=== PATIENT | female | born 1960 | race Native Hawaiian/Other Pacific Islander ===

== ENCOUNTER 2016-12-24 22:15 | Emergency (ER) | payer BC ==
[2016-12-24] MEDS ORDERED: IPRATROPIUM 0.5 MG/2.5 ML NEBU INHALATION STA (22:42)
[2016-12-24] MEDS ORDERED: MAGNESIUM SULFATE-D5W PMX 1 GM in DEXTROSE/WATER 1 100ML.BAG IVPB STA (22:42)
[2016-12-24] MEDS ORDERED: ALBUTEROL NEBULIZED 2.5 MG/3 ML INHALATION STA (22:42)
[2016-12-24] MEDS ORDERED: methylPREDNISolone SOD SUCCI 125 MG/2 ML VIAL IV STA (22:42)
[2016-12-24 23:05] LABS: Basophils % (A) 0 %; CH 26.9; CHCM 32.4; Eosinophils # (A) 0.5 k/uL (0-0.7); Eosinophils % (A) 7 %; HCT 36.3 % (34.0-46.0); HDW 2.39; HGB 11.6 gm/dL (11.4-16.0); Luc % (Auto) 3; Lymphocytes # (A) 2.8 k/uL (1.0-4.8); Lymphocytes % (A) 41 %; MCH 26.7 pg (25.0-35.0); MCHC 31.9 g/dL (31.0-37.0); MCV 83.7 fL (80.0-100.0); Mean Platelet Volume 7.3; Monocytes # (A) 0.4 k/uL (0-1.0); Monocytes % (A) 6 %; Neutrophils % (A) 43 %; RBC 4.33 m/uL (3.80-5.40); WBC 6.8 k/uL (3.8-10.6); WBC (Perox) 6.84
--- NOTE | 2016-12-24 23:08 | XR ---
EXAMINATION TYPE: XR chest 2V DATE OF EXAM: 12/24/2016 COMPARISON: NONE HISTORY: Dyspnea TECHNIQUE: Frontal and lateral views of the chest are obtained. FINDINGS: EKG leads. There is no focal air space opacity, pleural effusion, or pneumothorax seen. Th e cardiac silhouette size is within normal limits. The osseous structures are intact. IMPRESSION: No acute cardiopulmonary process.
[2016-12-24 23:13] LABS: ALT 31 U/L (9-52); AST 24 U/L (14-36); Alkaline Phosphatase 105 U/L (38-126); Anion Gap 12 mmol/L; Blood Urea Nitrogen 15 mg/dL (7-17); Calcium 9.4 mg/dL (8.4-10.2); Carbon Dioxide 16 mmol/L (22-30); Chloride 114 mmol/L (98-107); Glucose 92 mg/dL (74-99); Magnesium 1.9 mg/dL (1.6-2.3); Non-African American GFR(MDRD) >60 (>60 ml/min/1.73 sqM); Potassium 3.9 mmol/L (3.5-5.1); Sodium 142 mmol/L (137-145); Total Bilirubin 0.3 mg/dL (0.2-1.3); Total Protein 6.6 g/dL (6.3-8.2)
[2016-12-24 23:14] LABS: Partial Thromboplastin Time 23.4 sec (22.0-30.0); Prothrombin Time 9.9 sec (9.0-12.0)
[2016-12-24 23:41] VITALS: RESP 20
--- NOTE | 2016-12-25 00:30 | ED ---
SOB HPI - General Chief Complaint: Shortness of Breath Stated Complaint: JAKOB Time Seen by Provider: 12/24/16 22:40 Source: patient, family Mode of arrival: wheelchair Limitations: no limitations - History of Present Illness Initial Comments: Patient complains of asthma. She has a history of asthma. She denies any fever , chills or chest pain. She has no belly or back pain. She has no nausea or vomiting. She has no lightheadedness or dizziness. She did take her albuterol at home, however it is not helping her as much as usual. She is unaware of sick contacts and has not traveled anywhere. Her symptoms she thinks might be related to the weather. - Related Data Home Medications Medication Instructions Recorded Confirmed Adalimumab [Humira Pen] 40 mg SQ [id number] 12/24/16 12/24/16 Albuterol Sulfate [Proair Hfa] 1 - 2 puff INHALATION RT-Q6H PRN 12/24/16 Fluticasone/Salmeterol [Advair 1 puff INHALATION RT-BID 12/24/16 12/24/16 100-50 Diskus] Methotrexate Sodium [Methotrexate] 12.5 mg PO SA 12/24/16 12/24/16 Previous Rx's Medication Instructions Recorded predniSONE 50 mg PO DAILY #5 tablet 12/25/16 Allergies Allergy/AdvReac Type Severity Reaction Status Date / Time No Known Allergies Allergy Verified 12/24/16 22:54 Review of Systems ROS Statement: Those systems with pertinent positive or pertinent negative responses have been documented in the HPI. ROS Other: All systems not noted in ROS Statement are negative. Past Medical History Past Medical History: Asthma Additional Past Medical History / Comment(s): arthritis, History of Any Multi-Drug Resistant Organisms: None Reported, MRSA Date of last positivie culture/infection: 2015 MDRO Source:: chest Additional Past Surgical History / Comment(s): ccarpal tunnel Past Psychological History: No Psychological Hx Reported Smoking Status: Never smoker Past Alcohol Use History: None Reported Past Drug Use History: None Reported General Exam Limitations: no limitations General appearance: alert, in no apparent distress Head exam: Present: atraumatic, normocephalic, normal inspection Eye exam: Present: normal appearance, PERRL, EOMI. Absent: scleral icterus, conjunctival injection, periorbital swelling ENT exam: Present: normal exam, mucous membranes moist Neck exam: Present: normal inspection. Absent: tenderness, meningismus, lymphadenopathy Respiratory exam: Present: wheezes. Absent: respiratory distress, rales, rhonchi, stridor Cardiovascular Exam: Present: regular rate, normal rhythm, normal heart sounds. Absent: systolic murmur, diastolic murmur, rubs, gallop, clicks GI/Abdominal exam: Present: soft, normal bowel sounds. Absent: distended, tenderness, guarding, rebound, rigid Extremities exam: Present: normal inspection, full ROM, normal capillary refill. Absent: tenderness, pedal edema, joint swelling, calf tenderness Back exam: Present: normal inspection Neurological exam: Present: alert, oriented X3, CN II-XII intact Psychiatric exam: Present: normal affect, normal mood Skin exam: Present: warm, dry, intact, normal color. Absent: rash Course Vital Signs 12/24/16 12/24/16 12/24/16 22:23 23:04 23:21 Temperature 97.2 F L Pulse Rate 92 82 84 Respiratory 26 H Rate Blood Pressure 134/71 O2 Sat by Pulse 95 Oximetry 12/24/16 12/24/16 12/25/16 23:40 23:42 00:22 Temperature Pulse Rate 85 89 100 Respiratory 20 Rate Blood Pressure 120/58 O2 Sat by Pulse 99 Oximetry Medical Decision Making - Medical Decision Making Patient presents with an acute exacerbation of asthma. She is given breathing treatments. Her laboratory studies are normal. Her chest x-rays clear. I reevaluated the patient. Her lungs are clear and she is feeling much better. She would like to go home. She will follow-up with her doctor. - Lab Data Result diagrams: 12/24/16 22:50 12/24/16 22:50 Lab Results 12/24/16 12/24/16 12/24/16 Range/Units 22:50 22:50 22:50 WBC 6.8 (3.8-10.6) k/uL RBC 4.33 (3.80-5.40) m/uL Hgb 11.6 (11.4-16.0) gm/dL Hct 36.3 (34.0-46.0) % MCV 83.7 (80.0-100.0) fL MCH 26.7 (25.0-35.0) pg MCHC 31.9 (31.0-37.0) g/dL RDW 15.0 (11.5-15.5) % Plt Count 292 (150-450) k/uL Neutrophils % 43 % Lymphocytes % 41 % Monocytes % 6 % Eosinophils % 7 % Basophils % 0 % Neutrophils # 3.0 (1.3-7.7) k/uL Lymphocytes # 2.8 (1.0-4.8) k/uL Monocytes # 0.4 (0-1.0) k/uL Eosinophils # 0.5 (0-0.7) k/uL Basophils # 0.0 (0-0.2) k/uL PT (9.0-12.0) sec INR (<1.1) APTT (22.0-30.0) sec Sodium 142 (137-145) mmol/L Potassium 3.9 (3.5-5.1) mmol/L Chloride 114 H (98-107) mmol/L Carbon Dioxide 16 L (22-30) mmol/L Anion Gap 12 mmol/L BUN 15 (7-17) mg/dL Creatinine 0.80 (0.52-1.04) mg/dL Est GFR (MDRD) Af Amer >60 (>60 ml/min/1.73 sqM) Est GFR (MDRD) Non-Af >60 (>60 ml/min/1.73 sqM) Glucose 92 (74-99) mg/dL Calcium 9.4 (8.4-10.2) mg/dL Magnesium 1.9 (1.6-2.3) mg/dL Total Bilirubin 0.3 (0.2-1.3) mg/dL AST 24 (14-36) U/L ALT 31 (9-52) U/L Alkaline Phosphatase 105 (38-126) U/L Troponin I (0.000-0.034) ng/mL NT-Pro-B Natriuret Pep 419 pg/mL Total Protein 6.6 (6.3-8.2) g/dL Albumin 3.7 (3.5-5.0) g/dL 12/24/16 12/24/16 Range/Units 22:50 22:50 WBC (3.8-10.6) k/uL RBC (3.80-5.40) m/uL Hgb (11.4-16.0) gm/dL Hct (34.0-46.0) % MCV (80.0-100.0) fL MCH (25.0-35.0) pg MCHC (31.0-37.0) g/dL RDW (11.5-15.5) % Plt Count (150-450) k/uL Neutrophils % % Lymphocytes % % Monocytes % % Eosinophils % % Basophils % % Neutrophils # (1.3-7.7) k/uL Lymphocytes # (1.0-4.8) k/uL Monocytes # (0-1.0) k/uL Eosinophils # (0-0.7) k/uL Basophils # (0-0.2) k/uL PT 9.9 (9.0-12.0) sec INR 1.0 (<1.1) APTT 23.4 (22.0-30.0) sec Sodium (137-145) mmol/L Potassium (3.5-5.1) mmol/L Chloride (98-107) mmol/L Carbon Dioxide (22-30) mmol/L Anion Gap mmol/L BUN (7-17) mg/dL Creatinine (0.52-1.04) mg/dL Est GFR (MDRD) Af Amer (>60 ml/min/1.73 sqM) Est GFR (MDRD) Non-Af (>60 ml/min/1.73 sqM) Glucose (74-99) mg/dL Calcium (8.4-10.2) mg/dL Magnesium (1.6-2.3) mg/dL Total Bilirubin (0.2-1.3) mg/dL AST (14-36) U/L ALT (9-52) U/L Alkaline Phosphatase (38-126) U/L Troponin I <0.012 (0.000-0.034) ng/mL NT-Pro-B Natriuret Pep pg/mL Total Protein (6.3-8.2) g/dL Albumin (3.5-5.0) g/dL 12/25/16 00:28 Twelve-lead EKG is obtained, interpreted by me as showing ventricular rate 87 bpm, normal VT interval and QRS complex is, no ST elevation or depression, interpreted by me as normal sinus rhythm. Disposition Clinical Impression: Asthma with exacerbation Disposition: HOME SELF-CARE Condition: Fair Instructions: Asthma (ED) Prescriptions: predniSONE 50 mg PO DAILY #5 tablet Referrals: Todd Delarosa MD [Primary Care Provider] - 1-2 days Time of Disposition: 00:30
[2016-12-25 00:41] VITALS: BP 153/63; PULSE 103; TEMP 97.7
== END 2016-12-25 01:10 | disposition home or self-care (01) ==
LOC: EC 22:15
DX: J45.901 Unspecified asthma with (acute) exacerbation (principal); M19.90 Unspecified osteoarthritis, unspecified site; Z86.14 Personal history of Methicillin resistant Staphylococcus aureus infection; Z79.51 Long term (current) use of inhaled steroids; Z79.899 Other long term (current) drug therapy
CPT/HCPCS: 36415; 94644; 93005; 83880; 80053; 83735; 84484; 85025; 85610; 85730; 71020; 99285; 96365; 96375; J2930; J3475

== ENCOUNTER 2017-04-27 16:17 | Emergency (ER) | payer BC ==
[2017-04-27] MEDS ORDERED: IPRATROPIUM-ALBUTEROL 3 ML NEB INHALATION STA ×2 (16:58→18:19)
[2017-04-27] MEDS ORDERED: methylPREDNISolone SOD SUCCI 125 MG/2 ML VIAL IV STA (16:58)
--- NOTE | 2017-04-27 17:11 | ED ---
General Adult HPI - General Chief complaint: Shortness of Breath Stated complaint: Cough, Diff Breathing Time Seen by Provider: 04/27/17 16:50 Source: patient, RN notes reviewed Mode of arrival: ambulatory Limitations: no limitations - History of Present Illness Initial comments: The patient 57-year-old female with significant past medical history for asthma , who presents emergency room today with a chief complaint of increased cough congestion over the last 2 days. Patient is that she's tried her breathing treatments at home with little relief of symptoms. She admits to cough congestion with some sputum production. His masseter fever. Patient denies any other complaints or associated symptoms currently. Patient denies any recent chest pain, back pain, abdominal pain, nausea or vomiting, numbness or tingling, dysuria or hematuria, constipation or diarrhea, headaches or visual changes, or any other complaints. - Related Data Home Medications Medication Instructions Recorded Confirmed Adalimumab [Humira Pen] 40 mg SQ [id number] 12/24/16 04/27/17 Albuterol Sulfate [Proair Hfa] 1 - 2 puff INHALATION RT-Q6H PRN 12/24/16 Fluticasone/Salmeterol [Advair 1 puff INHALATION RT-BID 12/24/16 04/27/17 100-50 Diskus] Methotrexate Sodium [Methotrexate] 12.5 mg PO MO 12/24/16 04/27/17 Albuterol Nebulized [Ventolin 2.5 mg INHALATION RT-Q6H PRN 04/27/17 04/27/17 Nebulized] Ergocalciferol [Vitamin D2] 50,000 unit PO MO 04/27/17 04/27/17 Previous Rx's Medication Instructions Recorded Azithromycin [Zithromax Z-pack] 0 mg PO DIRECTED #6 tab 04/27/17 predniSONE 60 mg PO DAILY 5 Days 04/27/17 Allergies Allergy/AdvReac Type Severity Reaction Status Date / Time No Known Allergies Allergy Verified 04/27/17 18:11 Review of Systems ROS Statement: Those systems with pertinent positive or pertinent negative responses have been documented in the HPI. ROS Other: All systems not noted in ROS Statement are negative. Past Medical History Past Medical History: Asthma Additional Past Medical History / Comment(s): arthritis, History of Any Multi-Drug Resistant Organisms: None Reported, MRSA Date of last positivie culture/infection: 2016 MDRO Source:: chest Additional Past Surgical History / Comment(s): carpal tunnel Past Psychological History: No Psychological Hx Reported Smoking Status: Never smoker Past Alcohol Use History: None Reported Past Drug Use History: None Reported General Exam - General Exam Comments Initial Comments: General: The patient is awake and alert, in no distress, and does not appear acutely ill. Eye: Pupils are equal, round and reactive to light, extra-ocular movements are intact. No nystagmus. There is normal conjunctiva bilaterally. No signs of icterus. Ears, nose, mouth and throat: There are moist mucous membranes and no oral lesions. Neck: The neck is supple, there is no tenderness or JVD. Cardiovascular: There is a regular rate and rhythm. No murmur, rub or gallop is appreciated. Respiratory: Bilateral expiratory wheeze., respirations are non-labored, breath sounds are equal. No stridor, rales, or rhonchi. Musculoskeletal: Normal ROM, no tenderness. Strength 5/5. Sensation intact. Pulses equal bilaterally 2+. Neurological: A&O x 3. CN II-XII intact, There are no obvious motor or sensory deficits. Coordination appears grossly intact. Speech is normal. Skin: Skin is warm and dry and no rashes or lesions are noted. Psychiatric: Cooperative, appropriate mood & affect, normal judgment. Limitations: no limitations Course Vital Signs 04/27/17 04/27/17 04/27/17 16:31 17:26 17:29 Temperature 99.1 F 99.4 F Pulse Rate 91 91 103 H Respiratory 22 18 Rate Blood Pressure 141/67 O2 Sat by Pulse 95 97 Oximetry 04/27/17 04/27/17 04/27/17 17:36 17:55 18:15 Temperature Pulse Rate 91 106 H 106 H Respiratory 18 18 Rate Blood Pressure 125/57 O2 Sat by Pulse 96 96 Oximetry 04/27/17 04/27/17 04/27/17 18:41 18:54 19:00 Temperature 98.3 F Pulse Rate 109 H 105 H 123 H Respiratory 18 Rate Blood Pressure 137/60 O2 Sat by Pulse 96 Oximetry 04/27/17 19:10 Temperature Pulse Rate 121 H Respiratory 18 Rate Blood Pressure 123/69 O2 Sat by Pulse 95 Oximetry Medical Decision Making - Medical Decision Making Reexamined at this time shows no signs of distress. Pulse ox currently 97% on room air. She is resting comfortably. Does admit to improvement after breathing treatment through the emergency room. Lung sounds are improved bilaterally. Options were discussed with patient about admission to the hospital. She states she would rather be discharged home. She states she needs to go to work tomorrow. Patient states she does not want be admitted. Patient's chest x-rays negative for any evidence of pneumonia. She will be treated for bronchitis infection. Patient is advised follow family doctor next 2 days return to emergency room if any symptoms increase or worsen. Patient denies any recent fever, chills, shortness of breath, chest pain, back pain, abdominal pain, nausea or vomiting, numbness or tingling, dysuria or hematuria, constipation or diarrhea, headaches or visual changes, or any other complaints. - Lab Data Result diagrams: 04/27/17 17:30 04/27/17 17:30 Lab Results 04/27/17 04/27/17 Range/Units 17:30 17:30 WBC 6.8 (3.8-10.6) k/uL RBC 4.48 (3.80-5.40) m/uL Hgb 12.2 (11.4-16.0) gm/dL Hct 38.2 (34.0-46.0) % MCV 85.3 (80.0-100.0) fL MCH 27.2 (25.0-35.0) pg MCHC 31.9 (31.0-37.0) g/dL RDW 14.5 (11.5-15.5) % Plt Count 343 (150-450) k/uL Neutrophils % 79 % Lymphocytes % 9 % Monocytes % 5 % Eosinophils % 5 % Basophils % 1 % Neutrophils # 5.4 (1.3-7.7) k/uL Lymphocytes # 0.6 L (1.0-4.8) k/uL Monocytes # 0.3 (0-1.0) k/uL Eosinophils # 0.4 (0-0.7) k/uL Basophils # 0.0 (0-0.2) k/uL Sodium 141 (137-145) mmol/L Potassium 4.3 (3.5-5.1) mmol/L Chloride 113 H (98-107) mmol/L Carbon Dioxide 16 L (22-30) mmol/L Anion Gap 12 mmol/L BUN 11 (7-17) mg/dL Creatinine 0.70 (0.52-1.04) mg/dL Est GFR (MDRD) Af Amer >60 (>60 ml/min/1.73 sqM) Est GFR (MDRD) Non-Af >60 (>60 ml/min/1.73 sqM) Glucose 133 H (74-99) mg/dL Calcium 9.6 (8.4-10.2) mg/dL Magnesium 2.0 (1.6-2.3) mg/dL Disposition Clinical Impression: Acute bronchitis Disposition: HOME SELF-CARE Condition: Good Instructions: Acute Bronchitis (ED) Additional Instructions: Please use medication as discussed. Please follow-up with family doctor in the next 2 days of symptoms have not improved. Please return to emergency room if the symptoms increase or worsen or for any other concerns. Prescriptions: Azithromycin [Zithromax Z-pack] 0 mg PO DIRECTED #6 tab predniSONE 60 mg PO DAILY 5 Days Referrals: Todd Delarosa MD [Primary Care Provider] - 1-2 days Time of Disposition: 19:19
[2017-04-27 17:36] LABS: Basophils % (A) 1 %; CH 26.9; CHCM 31.7; Eosinophils # (A) 0.4 k/uL (0-0.7); Eosinophils % (A) 5 %; HCT 38.2 % (34.0-46.0); HDW 2.37; HGB 12.2 gm/dL (11.4-16.0); Luc # (Auto) 0.07; Luc % (Auto) 1; Lymphocytes # (A) 0.6 k/uL (1.0-4.8); Lymphocytes % (A) 9 %; MCH 27.2 pg (25.0-35.0); MCHC 31.9 g/dL (31.0-37.0); MCV 85.3 fL (80.0-100.0); Mean Platelet Volume 6.9; Monocytes # (A) 0.3 k/uL (0-1.0); Monocytes % (A) 5 %; Neutrophils # (A) 5.4 k/uL (1.3-7.7); Neutrophils % (A) 79 %; RBC 4.48 m/uL (3.80-5.40); RDW 14.5 % (11.5-15.5); WBC 6.8 k/uL (3.8-10.6); WBC (Perox) 6.36
[2017-04-27 17:46] LABS: Anion Gap 12 mmol/L; Blood Urea Nitrogen 11 mg/dL (7-17); Calcium 9.6 mg/dL (8.4-10.2); Carbon Dioxide 16 mmol/L (22-30); Chloride 113 mmol/L (98-107); Glucose 133 mg/dL (74-99); Non-African American GFR(MDRD) >60 (>60 ml/min/1.73 sqM); Potassium 4.3 mmol/L (3.5-5.1); Sodium 141 mmol/L (137-145)
[2017-04-27] MEDS ORDERED: ACETAMINOPHEN TAB 325 MG TAB PO STA (17:58)
--- NOTE | 2017-04-27 18:08 | XR ---
EXAMINATION TYPE: XR chest 2V DATE OF EXAM: 04/27/2017 COMPARISON: 12/24/2016 HISTORY: 57-year-old female with cough TECHNIQUE: PA and lateral views FINDINGS: The cardiomediastinal silhouette, aorta, and pulmonary vasculature are within normal limits. Intersti tial prominence which appears chronic. Some peribronchial cuffing is slightly increased. No consolida tion or pleural effusion. IMPRESSION: Chronic changes with slight increased peribronchial cuffing. Correlate for bronchitis or asthma. No a cute infiltrate.
[2017-04-27 19:56] VITALS: BP 122/59; PULSE 110; RESP 20; TEMP 98.9
== END 2017-04-27 19:56 | disposition home or self-care (01) ==
LOC: EC 16:17
DX: J20.9 Acute bronchitis, unspecified (principal); J45.909 Unspecified asthma, uncomplicated; M19.90 Unspecified osteoarthritis, unspecified site; Z86.14 Personal history of Methicillin resistant Staphylococcus aureus infection; Z79.51 Long term (current) use of inhaled steroids; Z79.899 Other long term (current) drug therapy
CPT/HCPCS: 99285 ×2; 96374 ×2; 36415; 94640 ×2; 80048; 83735; 85025; 71020; J2930